=== PATIENT | female | born 1945 | race Two or more races ===

== ENCOUNTER 2018-06-02 21:56 | Observation (INO) | payer MEDICARE, OTHER ==
--- NOTE | 2018-06-02 22:21 | PDOC ---
History of Present Illness - General Stated Complaint: DIZZY Time Seen by Provider: 06/02/18 22:08 History Source: Patient Exam Limitations: No Limitations - History of Present Illness Initial Comments: 06/03/18 04:18 Pt is a 72 y/o F with PMH of CVA, who presents to the ED for new onset dizziness and headache since this morning. Pt states that she feels like the room is spinning around her, and she is nauseous. The son at bedside states when her dizziness started, the patient was confused and was not understanding simple commands or answering questions. The episode was brief; however, the son was concerned because this was how her previous stroke started. Pt is currently AAOX3 with stable vitals. Pt is unsteady on her feet. Son also states that she has some residual R sided weakness from her previous stroke. Denies fevers, chills, SOB, chest pain, ear ache, v/d, weakness, numbness and tingling in her extremities. Past History - Travel Traveled outside of the country in the last 30 days: No Close contact w/someone who was outside of country & ill: No - Past Medical History Allergies/Adverse Reactions: Allergies Allergy/AdvReac Type Severity Reaction Status Date / Time No Known Allergies Allergy Verified 06/02/18 22:30 Review of Systems - Review of Systems Able to Perform ROS?: Yes Comments:: 06/03/18 00:05 CONSTITUTIONAL: Absent: fever, chills, diaphoresis, generalized weakness, malaise, loss of appetite HEENT: Absent: rhinorrhea, nasal congestion, throat pain, throat swelling, difficulty swallowing, mouth swelling, ear pain, eye pain, visual Changes CARDIOVASCULAR: Absent: chest pain, loss of consciousness, palpitations, irregular heart rate, peripheral edema RESPIRATORY: Absent: cough, shortness of breath, dyspnea with exertion, orthopnea, wheezing, stridor, hemoptysis GASTROINTESTINAL: Present: nausea Absent: abdominal pain, abdominal distension, vomiting, diarrhea , constipation, melena, hematochezia GENITOURINARY: Absent: dysuria, frequency, urgency, hesitancy, hematuria, flank pain, genital pain MUSCULOSKELETAL: Absent: myalgia, arthralgia, joint swelling SKIN: Absent: rash, itching, pallor HEMATOLOGIC/IMMUNOLOGIC: Absent: easy bleeding, easy bruising, lymphadenopathy, frequent infections ENDOCRINE: Absent: unexplained weight gain, unexplained weight loss, heat intolerance, cold intolerance NEUROLOGIC: Present: dizziness, unsteady gait, headache Absent: focal weakness or paresthesias, seizure, mental status changes, bladder or bowel incontinence PSYCHIATRIC: Absent: anxiety, depression, suicidal or homicidal ideation, hallucinations. Is the patient limited Slovenian proficient: No *Physical Exam - Physical Exam Comments: 06/03/18 00:05 GENERAL: Well developed, well nourished. Awake and alert. No acute distress. HEENT: Normocephalic, atraumatic. PERRLA, EOMI. No conjunctival pallor. Sclera are non- icteric. Moist mucous membranes. Oropharynx is clear. NECK: Supple. Full ROM. No JVD. Carotid pulses 2+ and symmetric, without bruits. No thyromegaly. No lymphadenopathy. CARDIOVASCULAR: Regular rate and rhythm. No murmurs, rubs, or gallops. Distal pulses are 2+ and symmetric. PULMONARY: No evidence of respiratory distress. Lungs clear to auscultation bilaterally. No wheezing, rales or rhonchi. ABDOMINAL: Soft. Non-tender. Non-distended. No rebound or guarding. No organomegaly. Normoactive bowel sounds. MUSCULOSKELETAL Normal range of motion at all joints. No bony deformities or tenderness. No CVA tenderness. EXTREMITIES: No cyanosis. No clubbing. No edema. No calf tenderness. SKIN: Warm and dry. Normal capillary refill. No rashes. No jaundice. NEUROLOGICAL: Alert, awake, appropriate. Cranial nerves 2-12 intact. No deficits to light touch and temperature in face, upper extremities and lower extremities. No motor deficits in the in face, upper extremities and lower extremities. Normoreflexic in the upper and lower extremities. Normal speech. Toes are down- going bilaterally. Gait is normal without ataxia. Pt with difficulty with alternating rapid movements on the right; as well as mild dysmetria on the R. PSYCHIATRIC: Cooperative. Good eye contact. Appropriate mood and affect. ED Treatment Course - LABORATORY CBC & Chemistry Diagram: 06/03/18 00:17 06/03/18 00:17 Medical Decision Making - Medical Decision Making 06/03/18 03:21 Patient is a 72-year-old female past medical history of stroke, who presents to the emergency department today for new onset dizziness. Of note patient had brief altered mental status this morning when talking with her son. Returned to baseline after 2 minutes. -On exam patient with difficulty performing rapid alternating movements of the right hand as well as having some dysmetria. Unclear if this is from the residual stroke or new neurological findings. -Lab work is unremarkable at this time. No leukocytosis, H&H is stable. No gross electrolyte abnormalities. -Meclizine administered in the emergency department with relief of some symptoms. Patient still reports being dizzy. -Head CT is negative for acute pathology. -Given age, dizziness, brief altered mental status, and potentially new neurological findings, we'll place patient in observation for MRI and neurology consult. Case discussed with Reagan Brower PGY-II for [facility], who agrees with obs placement *DC/Admit/Observation/Transfer Diagnosis at time of Disposition: Dizziness - Discharge Dispostion Condition at time of disposition: Fair Decision to Admit order: Yes - Referrals - Patient Instructions - Post Discharge Activity
[2018-06-02 22:30] VITALS: BMI 26.6
[2018-06-02] MEDS ORDERED: SODIUM CHLORIDE 1,000 ML IV STA (22:32)
[2018-06-02] MEDS ORDERED: ONDANSETRON 4 MG/2 ML VIAL IVPUSH ONE (22:45)
[2018-06-02] MEDS ORDERED: MECLIZINE HCL 25 MG TABLET (FP) PO ONE (22:45)
[2018-06-02] MEDS ORDERED: ONDANSETRON 4 MG/2 ML VIAL ONE (23:58)
[2018-06-02] MEDS ORDERED: MECLIZINE HCL 25 MG TABLET (FP) ONE (23:58)
[2018-06-03 00:42] LABS: BASO % 0.3 % (0-2.0); EOS % 0.5 % (0-4.5); HEMATOCRIT 45.2 % (32.4-45.2); HEMOGLOBIN 15.3 GM/dL (10.7-15.3); LYMPH % 10.6 % (8-40); MCH 30.3 pg (25.7-33.7); MCHC 33.8 g/dl (32.0-36.0); MEAN CELL VOLUME 89.4 fl (80-96); MEAN PLT VOLUME 8.8 fl (7.5-11.1); MONO % 5.8 % (3.8-10.2); NEUT % 82.8 % (42.8-82.8); PLATELET COUNT 241 K/MM3 (134-434); RBC 5.06 M/mm3 (3.60-5.2); WHITE BLOOD COUNT 10.6 K/mm3 (4.0-10.0)
[2018-06-03 00:43] LABS: URINE APPEARANCE CLEAR; URINE BILIRUBIN NEGATIVE (<2.0 mg/dL); URINE COLOR LTYELLOW; URINE GLUCOSE (UA) NEGATIVE (NEGATIVE); URINE KETONE NEGATIVE (NEGATIVE); URINE NITRITE NEGATIVE (NEGATIVE); URINE PROTEIN NEGATIVE (NEGATIVE); URINE UROBILINOGEN NEGATIVE mg/dL (0.2-1.0)
[2018-06-03 00:47] LABS: URINE LEUK ESTERASE 3+ (NEGATIVE)
[2018-06-03 00:48] LABS: INR 1.09 (0.83-1.09); PROTHROMBIN TIME (PATIENT) 12.3 SEC (9.7-13.0)
[2018-06-03 00:50] LABS: EPI CELLS MODERATE /HPF (FEW); URINE MUCUS RARE
[2018-06-03 00:56] LABS: ALBUMIN 3.8 g/dl (3.4-5.0); ALK PHOS 124 U/L (45-117); ANION GAP 8 MMOL/L (8-16); BILIRUBIN,TOTAL 0.4 mg/dL (0.2-1.0); BLOOD UREA NITROGEN 11 mg/dL (7-18); CHLORIDE 105 mmol/L (98-107); CO2 27 mmol/L (21-32); GLUCOSE,RANDOM 109 mg/dL (74-106); SGPT/ALT 25 U/L (12-78); SODIUM 140 mmol/L (136-145); TOT PROT 8.4 g/dl (6.4-8.2)
[2018-06-03 00:57] LABS: POTASSIUM 4.4 mmol/L (3.5-5.1); SGOT/AST 22 U/L (15-37)
--- NOTE | 2018-06-03 05:03 | PN ---
Teaching Attending Note Name of Resident: Aura Pate ATTENDING PHYSICIAN STATEMENT I saw and evaluated the patient. I reviewed the resident's note and discussed the case with the resident. I agree with the resident's findings and plan as documented. SUBJECTIVE: Patient is a 72 year old woman with PMH of CVA (2 years ago), hypertension and CABG who presents to the ER for new onset dizziness and headache since this morning. SOn says they had just arrived on a flight from [facility] and after she took he shower started complaining of those symptoms. Patient states that she feels like the room is spinning around her, and she is nauseous. The son at bedside states when her dizziness started, the patient was confused and was not understanding simple commands or answering questions. Patient is currently back to her baseline - son told me that her CVA two years ago was not associated with hemiparesis, though he gave a different history to the ER staff - that she has some residual R sided weakness from her previous stroke. Denies fevers, chills, SOB, or chest pain. She was asymtomatic before they boarded the flight to [place] from and did not have any issues during the flight. Was complaining of thirst upon arrival in the ER. OBJECTIVE: Alert Vital Signs Period Temp Pulse Resp BP Sys/Briseno Pulse Ox Last 24 Hr 97.3 F 82 18 133/87 96 HEENT: No Jaundice, eye redness or discharge, PERRLA, EOMI. Normocephalic, atraumatic. External ears are normal and hearing is grossly intact. No nasal discharge. Neck: Supple, nontender. No palpable adenopathy or thyromegaly. No JVD Chest: Good effort. Clear to auscultation and percussion. Heart: Regular. No S3, rub or murmur Abdomen: Not distended, soft, nontender and no HSM. No rebound or guarding. Normoactive bowel sounds. Ext: Peripheral pulses intact. No leg edema. Limited ROM right shoulder - no tenderness. Skin: Warm and dry. No petechiae, rash or ecchymosis. Neuro: Alert. Oriented x3. CN 2-12 grossly intact. Sensation grossly intact in all four extremities and DTR are symmetric. Slow gait. Abnormal Lab Results 06/03/18 06/03/18 06/03/18 00:17 00:17 00:17 WBC 10.6 H Absolute Neuts (auto) 8.8 H Random Glucose 109 H Alkaline Phosphatase 124 H Total Protein 8.4 H Ur Leukocyte Esterase 3+ H ASSESSMENT AND PLAN: 1.UTI - Head CT scan does not show any acute pathology and there is nothing to suggest PE despite the long airplane flight. UTI may explain her symptoms, exacerbated by heat. Will treat with IV NS and Rocephin 1 gm q 24 hours. If dizziness reoccurs, will get brain MRI. Get fasting lipid profile, monitor on telemetry and treat with aspirin and lipitor 80 mg qd. Consult neurology. 2. DVT prophylaxis - Lovenox 40 mg SQ q 24 hours. 3. Advance directives - Full code
[2018-06-03] MEDS ORDERED: ROSUVASTATIN CA 20 MG TABLET (FP) PO ONE (06:08)
--- NOTE | 2018-06-03 06:39 | HP ---
CHIEF COMPLAINT: Dizziness PCP: None currently; Previously at the [facility] in [facility] HISTORY OF PRESENT ILLNESS: 72 y/o female, primarily mosotho speaking, with a PMhx of CVA (Residual Right sided weakness), HTN, HLD, accompanied by her son (Who provided most of the hx) presents with new onset dizziness. Patient arrived from [facility] Wednesday after a 3 hour flight. On the car ride home from the airport , patient felt some pain in her left abdomen accompanied by nausea but no vomiting and urinated on herself. After arriving home, the son offered her something to eat and the patient was unable to answer. Her son says she was acting strange unable to respond or comprehend to his questions and that her lower lip was deviating to the left. This episode lasted for approx 3 mins after which the patient complained of dizziness, as if the room is spinning around her. It was not accompanied by LOC or jerking movements. Given her hx of stroke, her son was prompted to call EMS and bring the patient to [facility] ED. During the episode, she denies any pain, weakness, or sensational deficits. She denies any new stress in her life, no new trauma, no feelings of anxiety. She did have medication changes approx 1 month ago however her son is unsure of what specifically. Her symptoms have resolved during her ED Stay. 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 Family History: Denies Allergies No Known Allergies Allergy (Verified 06/02/18 22:30) HOME MEDICATIONS: REVIEW OF SYSTEMS CONSTITUTIONAL: Absent: fever, chills, diaphoresis, generalized weakness, malaise, loss of appetite, weight change HEENT: Absent: rhinorrhea, nasal congestion, throat pain, throat swelling, difficulty swallowing, mouth swelling, ear pain, eye pain, visual changes CARDIOVASCULAR: Absent: chest pain, syncope, palpitations, irregular heart rate, lightheadedness , peripheral edema RESPIRATORY: Absent: cough, shortness of breath, dyspnea with exertion, orthopnea, wheezing, stridor, hemoptysis GASTROINTESTINAL: Present: Nausea Absent: abdominal pain, abdominal distension, vomiting, diarrhea, constipation, melena, hematochezia GENITOURINARY: Present: Urinary incontinence Absent: dysuria, frequency, urgency, hesitancy, hematuria, flank pain, genital pain MUSCULOSKELETAL: Absent: myalgia, arthralgia, joint swelling, back pain, neck pain SKIN: Absent: rash, itching, pallor HEMATOLOGIC/IMMUNOLOGIC: Absent: easy bleeding, easy bruising, lymphadenopathy, frequent infections ENDOCRINE: Absent: unexplained weight gain, unexplained weight loss, heat intolerance, cold intolerance NEUROLOGIC: Present: dizziness, Absent: headache, focal weakness or paresthesias, unsteady gait, seizure, mental status changes, bladder or bowel incontinence PSYCHIATRIC: Absent: anxiety, depression, suicidal or homicidal ideation, hallucinations. PHYSICAL EXAMINATION Vital Signs - 24 hr 06/02/18 22:00 Temperature 97.3 F L Pulse Rate 82 Respiratory 18 Rate Blood Pressure 133/87 O2 Sat by Pulse 96 Oximetry (%) GENERAL: Awake, alert, and fully oriented, in no acute distress. HEAD: Normal with no signs of trauma. EYES: PERRL, EOMI THROAT: Oropharynx clear without exudates. Moist mucous membranes. Uvula midline. NECK: No JVD LUNGS: Breath sounds equal, clear to auscultation bilaterally. No wheezes, and no crackles. HEART: Regular rate and rhythm, normal S1 and S2 without murmur ABDOMEN: Soft, nontender, not distended, normoactive bowel sounds, no guarding UPPER EXTREMITIES: 2+ pulses, Limited Right shoulder ROM LOWER EXTREMITIES: 2+ pulses, No calf tenderness. No peripheral edema. NEUROLOGICAL: Cranial nerves II-XII intact. Normal speech. C5-T1 and L4-S1 gross sensation intake. Difficulty with Finger to nose R>L. Patient able to ambulate with short stepping gait. Right sided difficulty with rapid hand alternating movements. Muscle strength 5/5 throughout SKIN: Warm, dry, no rashes or lesions noted Laboratory Results - last 24 hr 06/03/18 06/03/18 06/03/18 00:17 00:17 00:17 WBC 10.6 H RBC 5.06 Hgb 15.3 Hct 45.2 MCV 89.4 MCH 30.3 MCHC 33.8 RDW 14.0 Plt Count 241 MPV 8.8 Absolute Neuts (auto) 8.8 H Neutrophils % 82.8 Lymphocytes % 10.6 Monocytes % 5.8 Eosinophils % 0.5 Basophils % 0.3 Nucleated RBC % 0 PT with INR 12.30 INR 1.09 Sodium Potassium Chloride Carbon Dioxide Anion Gap BUN Creatinine Creat Clearance w eGFR Random Glucose Calcium Total Bilirubin AST ALT Alkaline Phosphatase Creatine Kinase Troponin I Total Protein Albumin Urine Color Ltyellow Urine Appearance Clear Urine pH 6.0 Ur Specific [place] 1.015 Urine Protein Negative Urine Glucose (UA) Negative Urine Ketones Negative Urine Blood Negative Urine Nitrite Negative Urine Bilirubin Negative Urine Urobilinogen Negative Ur Leukocyte Esterase 3+ H Urine WBC (Auto) 17 Urine RBC (Auto) 1 Ur Epithelial Cells Moderate Urine Mucus Rare 06/03/18 06/03/18 00:17 00:17 WBC RBC Hgb Hct MCV MCH MCHC RDW Plt Count MPV Absolute Neuts (auto) Neutrophils % Lymphocytes % Monocytes % Eosinophils % Basophils % Nucleated RBC % PT with INR INR Sodium 140 Potassium 4.4 Chloride 105 Carbon Dioxide 27 Anion Gap 8 BUN 11 Creatinine 1.0 Creat Clearance w eGFR 54.20 Random Glucose 109 H Calcium 9.0 Total Bilirubin 0.4 AST 22 ALT 25 Alkaline Phosphatase 124 H Creatine Kinase 45 Troponin I 0.02 Total Protein 8.4 H Albumin 3.8 Urine Color Urine Appearance Urine pH Ur Specific [place] Urine Protein Urine Glucose (UA) Urine Ketones Urine Blood Urine Nitrite Urine Bilirubin Urine Urobilinogen Ur Leukocyte Esterase Urine WBC (Auto) Urine RBC (Auto) Ur Epithelial Cells Urine Mucus Active Medications Aspirin (Asa -) 81 mg PO DAILY COUNTS INCLUDE 234 BEDS AT THE [facility] Enoxaparin Sodium (Lovenox -) 40 mg SQ DAILY COUNTS INCLUDE 234 BEDS AT THE [facility] Ceftriaxone Sodium 1 gm/ (Dextrose) 100 mls @ 200 mls/hr IVPB DAILY SIRIA; Protocol Sodium Chloride (Normal Saline -) 1,000 mls @ 75 mls/hr IV ASDIR SIRIA ASSESSMENT/PLAN: 72 y/o female with a PMhx of CVA (Residual Right sided weakness), HTN, HLD, who just arrived from [facility] presents with new onset dizziness and difficulty responding to commands will be observed in Tele 1. UTI - UA: 3+ LE, 17 WBC - Stat urine Cultures ordered - Rocephin 1gm daily - NS Bolus give in ED, continue with IV NS @ 75 mls/hr 2. Hx of Stroke - Head CT pending official read - Neurology (Dr. Bradley) Consulted, Can consider MRI pending recommendations - ASA 81 mg, Rosuvastatin 40 mg started - Lipid panel pending this AM - ECHO, Carotid doppler ordered - PT Requested 3. FEN - NS @ 75 mls/hr - Lytes wnl - Regular diet 4. PPx - DVT: Lovenox 40mg SQ Daily Dispo: Obs tele Visit type - Emergency Visit Emergency Visit: Yes Care time: The patient presented to the Emergency Department on the above date and was hospitalized for further evaluation of their emergent condition. - New Patient This patient is new to me today: Yes Date on this admission: 06/03/18 - Critical Care Critical Care patient: No Hospitalist Screening - Colonoscopy Questionnaire Colonoscopy Questionnaire: Colonoscopy Questionnaire - Patient: 50 - 75 years old and never had a screening colonoscopy: Unknown History of colon or rectal polyps, or CA: Unknown History of IBD, Crohn's disease or UC: Unknown History of abdominal radiation therapy as a child: Unknown - Relative: 1 with colon or rectal CA, or polyps at age 60 or younger: Unknown Colon or rectal CA diagnosed at age 45 or younger: Unknown Multiple relatives with colon or rectal CA: Unknown - Outcome: Screening Result: Negative Screen
[2018-06-03] MEDS ORDERED: SODIUM CHLORIDE 1,000 ML IV SCH (06:45)
[2018-06-03 08:30] LABS: EOS % 2.5 % (0-4.5); HEMATOCRIT 42.9 % (32.4-45.2); HEMOGLOBIN 14.4 GM/dL (10.7-15.3); LYMPH % 29.4 % (8-40); MCH 29.9 pg (25.7-33.7); MCHC 33.5 g/dl (32.0-36.0); MEAN CELL VOLUME 89.2 fl (80-96); MEAN PLT VOLUME 8.8 fl (7.5-11.1); MONO % 7.1 % (3.8-10.2); PLATELET COUNT 207 K/MM3 (134-434); RBC 4.81 M/mm3 (3.60-5.2); RDW 13.7 % (11.6-15.6); WHITE BLOOD COUNT 5.6 K/mm3 (4.0-10.0)
[2018-06-03] MEDS ORDERED: MECLIZINE HCL 25 MG TABLET (FP) PO PRN (08:39)
[2018-06-03 08:53] LABS: ALBUMIN 3.4 g/dl (3.4-5.0); ANION GAP 9 MMOL/L (8-16); BILIRUBIN,TOTAL 0.6 mg/dL (0.2-1.0); BLOOD UREA NITROGEN 10 mg/dL (7-18); CHLORIDE 108 mmol/L (98-107); CHOLESTEROL 247 mg/dL (50-200); CO2 27 mmol/L (21-32); GLUCOSE,RANDOM 91 mg/dL (74-106); MAGNESIUM 2.2 mg/dL (1.8-2.4); PHOSPHOROUS 3.6 mg/dL (2.5-4.9); SGPT/ALT 20 U/L (12-78); SODIUM 144 mmol/L (136-145); TOT PROT 7.3 g/dl (6.4-8.2); TRIGLYCERIDES 61 mg/dL (35-160)
[2018-06-03 08:54] LABS: ALK PHOS 110 U/L (45-117); CREATININE 0.8 mg/dL (0.55-1.02); SGOT/AST 14 U/L (15-37)
[2018-06-03 08:55] LABS: HDL CHOLESTEROL 50 mg/dL (40-60)
[2018-06-03] MEDS ORDERED: ASPIRIN 81 MG CHEWABLE TABLETS PO SCH (10:00)
[2018-06-03] MEDS ORDERED: CEFTRIAXONE 1 GM in DEXTROSE 5%-WATER 100 ML IVPB SCH (10:00)
[2018-06-03] MEDS ORDERED: ENOXAPARIN NA (PORCINE) 40 MG/0.4 ML DISP.SYRIN SQ SCH (10:00)
[2018-06-03] MEDS ORDERED: ASPIRIN 81 MG CHEWABLE TABLETS ONE (10:29)
[2018-06-03] MEDS ORDERED: ENOXAPARIN NA (PORCINE) 40 MG/0.4 ML DISP.SYRIN SQ ONE ×2 (10:29→10:30)
[2018-06-03] MEDS ORDERED: CEFTRIAXONE 1 GM/50 ML BAG ONE (10:30)
--- NOTE | 2018-06-03 10:30 | EKG ---
Test Reason : Blood Pressure : / mmHG Vent. Rate : 085 BPM Atrial Rate : 085 BPM P-R Int : 156 ms QRS Dur : 146 ms QT Int : 434 ms P-R-T Axes : 073 -69 087 degrees QTc Int : 516 ms Atrial-sensed ventricular-paced rhythm ABNORMAL ECG NO PREVIOUS ECGS AVAILABLE Confirmed by JENS OJEDA MD ([id number]) on 06/03/2018 10:29:31 AM Referred By: Confirmed By:JENS OJEDA MD
[2018-06-03 12:09] VITALS: PULSE 80
--- NOTE | 2018-06-03 12:46 | CONSULT ---
Admitting History and Physical - Primary Care Physician PCP: [facility] - Admission History of Present Illness: 72 y/o female with a PMhx of CVA (Residual Right sided weakness), HTN, HLD, who just arrived from [facility] presents with new onset dizziness and difficulty responding to commands Selected Entries 06/03/18 06/03/18 08:28 12:07 Temperature 99.1 F 98.9 F Laboratory Tests 06/03/18 06/03/18 00:17 08:00 WBC 10.6 H 5.6 Seen in ER. Pt's son served as newspaper vendor and informant. History Source: Patient, Family Member, Medical Record Limitations to Obtaining History: No Limitations, Language Barrier - Smoking History Smoking history: Unknown if ever smoked Have you smoked in the past 12 months: No - Alcohol/Substance Use Hx Alcohol Use: No History - Admission Reason For Visit: DIZZINESS - Diagnostics X-ray: Report Reviewed CT Scan: Report Reviewed - General Mental Status: Alert and Oriented, Awake and Alert, Able to Follow Commands Attention: Intact Ability to Follow Directions: Excellent Head/Neck Control: WFL - Hearing Hearing: Functional Speech Evaluation - Communication Primary Language: OCCITAN Communication: Yes: Within Normal Limits Oral Expression Ability: Yes: No Impairment - Speech Production Able to Make Needs Known: Yes: WNL Intelligibility: Yes: WNL - Speech Characteristics Voice Loudness: Normal Voice Pitch: Yes: Normal Voice Phonatory-based Quality: Yes: Normal Speech Pattern: Normal Speech Clarity: < 100% Nasal Resonance: Normal Articulation: Yes: Precise Rate of Speech: Intact - Language/Auditory Comprehension Follows: Yes: 2 Stage Simple Commands - Language/Verbal Expression Able to Respond to Simple Queries: Yes: WNL Able to Communicate Wants and Needs: Yes: WNL Functional Communication Status: Yes: WNL - Memory/Perception halfway Memory: Yes: WNL Short Term Memory: Yes: WNL - Swallow Evaluation/Bedside Assessment Current Nutritional Intake: Regular, Thin Liquids Oral Secretions: Yes: WFL Dentition: Yes: Adequate Facial Symmetry at Rest: Symmetrical Facial Symmetry on Retraction: Symmetrical Facial Movement: Controlled Against Resistance Opening: Normal Against Resistance Closing: Normal Pucker Lips: Normal Smile: Normal Lingual Movement: Normal, Symmetric Lingual Speed of Movement: Normal Lingual Movement Strgth Against Opposition: Normal Lingual Movement Characteristics: Normal Soft Palate Description: Normal Color, Normal Symmetry Hard Palate Description: Normal Color, Normal Symmetry Velopharyngeal Movement: Normal Laryngeal Elevation: WFL Laryngeal Movement: Able to Palpate Rate of Intake: WFL Bolus Size: WFL Labial Seal: WFL Chewing: WFL Oral Prep Time: WFL A-P Transit: WFL Pocketing: None Timing of Swallow: WFL Coughing/Throat Clear: No Change in Voice: No Recommendations - Speech Evaluation, Impression/Plan Impression: Albanian speaking. Speech production, language, cognition, swallowing WNL. - Dysphagia Impressions/Plan Swallowing Skills: WF Dysphagia Impressions: No Impairment *Silent aspiration: cannot be R/O at bedside - Recommendations Diet Consistency: Regular Medication Administration: Whole with water Liquids: Thin Liquids
--- NOTE | 2018-06-03 16:09 | ECHO ---
Name: ANITA, CANDE Exam:Adult Echocardiogram Study Date: 06/03/2018 10:11 AM Age: 72 yrs Reason For Study: Stroke Height: 66 in Weight: 165 lb BSA: 1.8 m2 MMode/2D Measurements & Calculations IVSd: 1.1 cm Ao root diam: 2.3 cm LVIDd: 4.1 cm LA dimension: 3.1 cm LVIDs: 2.3 cm LVPWd: 0.99 cm LVPWs: 1.4 cm EDV(Teich): 75.3 ml ESV(Teich): 19.1 ml Doppler Measurements & Calculations MV E max saravanan: 84.9 cm/sec Ao V2 max: 142.9 cm/sec MV A max saravanan: 95.8 cm/sec Ao max P.2 mmHg MV E/A: 0.89 AI P1/2t: 301.2 msec MV dec time: 0.15 sec AI max saravanan: 357.2 cm/sec LV V1 max P.2 mmHg AI max P.0 mmHg LV V1 max: 89.3 cm/sec AI dec slope: 347.3 cm/sec2 MR max saravanan: 507.3 cm/sec TR max saravanan: 253.9 cm/sec MR max P.1 mmHg TR max P.0 mmHg PA V2 max: 97.1 cm/sec Med Peak E' Saravanan: 6.5 cm/sec PA max P.8 mmHg Med E/e': 13.1 Lat Peak E' Saravanan: 6.0 cm/sec PA acc slope: 221.7 cm/sec2 Lat E/e': 14.1 PA acc time: 0.28 sec PA pr(Accel): -47.8 mmHg Procedure A two-dimensional transthoracic echocardiogram with color flow and Doppler was performed. Left Ventricle The left ventricle is grossly normal size. Proximal septal thickening is noted. The left ventricular ejection fraction is normal. There is moderate apical wall hypokinesis. There is apical lateral wall hypokines is. There is apical anterior wall hypokinesis. Right Ventricle The right ventricle is normal in size and function. Atria The left atrium is moderately dilated. There is a catheter/pacemaker lead seen in the right atrium. T he right atrium is mildly dilated. Mitral Valve There is mild mitral valve thickening. There is no mitral valve stenosis. There is moderate to severe mitral regurgitation. Tricuspid Valve There is mild tricuspid valve thickening. There is no tricuspid stenosis. There is moderate to severe tricuspid regurgitation. Right ventricular systolic pressure is elevated at 40-50mmHg. Aortic Valve The aortic valve is normal in structure and function. No hemodynamically significant valvular aortic stenosis. Mild aortic regurgitation. Great Vessels The aortic root is normal size. Pericardium/Pleura There is no pericardial effusion. Interpretation Summary The left ventricular ejection fraction is normal. There is a catheter/pacemaker lead seen in the right atrium. The left ventricle is grossly normal size. Proximal septal thickening is noted. There is moderate apical wall hypokinesis. The left atrium is moderately dilated. The right atrium is mildly dilated. There is moderate to severe mitral regurgitation. There is moderate to severe tricuspid regurgitation. Right ventricular systolic pressure is elevated at 40-50mmHg. Mild aortic regurgitation. There is apical lateral wall hypokinesis. There is apical anterior wall hypokinesis. MD John Schulte 06/03/2018 03:05 PM
--- NOTE | 2018-06-03 18:01 | PN ---
Teaching Attending Note Name of Resident: Lyle Hong ATTENDING PHYSICIAN STATEMENT I saw and evaluated the patient. I reviewed the resident's note and discussed the case with the resident. I agree with the resident's findings and plan as documented with exceptions below. SUBJECTIVE: Patient seen and examined, no dizziness or new concerns, joking with the family at bedside. Son wondering if patient can go home. OBJECTIVE: Vital Signs Period Temp Pulse Resp BP Sys/Briseno Pulse Ox Last 24 Hr 97.3 F-99.1 F 76-82 18-18 133-146/83-95 96-100 Intake & Output 05/31/18 06/01/18 06/02/18 06/03/18 23:59 23:59 23:59 23:59 Weight 165 lb General: sitting in bed in no acute distress Chest: CTAB, no rales or wheezing Abdomen:soft, ND Extremities: no edema Neuro: Alert. Oriented x3. CN 2-12 grossly intact. Sensation grossly intact in all four extremities and DTR are symmetric. Slow gait. Active Medications Aspirin (Asa -) 81 mg PO DAILY SIRIA Last Admin: 06/03/18 10:31 Dose: 81 mg Enoxaparin Sodium (Lovenox -) 40 mg SQ DAILY SIRIA Last Admin: 06/03/18 10:31 Dose: 40 mg Ceftriaxone Sodium 1 gm/ (Dextrose) 100 mls @ 200 mls/hr IVPB DAILY SIRIA; Protocol Last Admin: 06/03/18 10:31 Dose: 200 mls/hr Sodium Chloride (Normal Saline -) 1,000 mls @ 75 mls/hr IV ASDIR SIRIA Last Admin: 06/03/18 06:50 Dose: 75 mls/hr Meclizine HCl (Antivert -) 25 mg PO Q6H PRN PRN Reason: VERTIGO Laboratory Results - last 24 hr 06/03/18 06/03/18 06/03/18 00:17 00:17 00:17 WBC 10.6 H RBC 5.06 Hgb 15.3 Hct 45.2 MCV 89.4 MCH 30.3 MCHC 33.8 RDW 14.0 Plt Count 241 MPV 8.8 Absolute Neuts (auto) 8.8 H Neutrophils % 82.8 Lymphocytes % 10.6 Monocytes % 5.8 Eosinophils % 0.5 Basophils % 0.3 Nucleated RBC % 0 PT with INR 12.30 INR 1.09 Sodium Potassium Chloride Carbon Dioxide Anion Gap BUN Creatinine Creat Clearance w eGFR Random Glucose Calcium Phosphorus Magnesium Total Bilirubin AST ALT Alkaline Phosphatase Creatine Kinase Troponin I Total Protein Albumin Triglycerides Cholesterol Total LDL Cholesterol HDL Cholesterol Urine Color Ltyellow Urine Appearance Clear Urine pH 6.0 Ur Specific [place] 1.015 Urine Protein Negative Urine Glucose (UA) Negative Urine Ketones Negative Urine Blood Negative Urine Nitrite Negative Urine Bilirubin Negative Urine Urobilinogen Negative Ur Leukocyte Esterase 3+ H Urine WBC (Auto) 17 Urine RBC (Auto) 1 Ur Epithelial Cells Moderate Urine Mucus Rare 06/03/18 06/03/18 06/03/18 00:17 00:17 08:00 WBC 5.6 RBC 4.81 Hgb 14.4 Hct 42.9 MCV 89.2 MCH 29.9 MCHC 33.5 RDW 13.7 Plt Count 207 MPV 8.8 Absolute Neuts (auto) 3.4 Neutrophils % 60.0 D Lymphocytes % 29.4 D Monocytes % 7.1 Eosinophils % 2.5 D Basophils % 1.0 D Nucleated RBC % 0 PT with INR INR Sodium 140 Potassium 4.4 Chloride 105 Carbon Dioxide 27 Anion Gap 8 BUN 11 Creatinine 1.0 Creat Clearance w eGFR 54.20 Random Glucose 109 H Calcium 9.0 Phosphorus Magnesium Total Bilirubin 0.4 AST 22 ALT 25 Alkaline Phosphatase 124 H Creatine Kinase 45 Troponin I 0.02 Total Protein 8.4 H Albumin 3.8 Triglycerides Cholesterol Total LDL Cholesterol HDL Cholesterol Urine Color Urine Appearance Urine pH Ur Specific [place] Urine Protein Urine Glucose (UA) Urine Ketones Urine Blood Urine Nitrite Urine Bilirubin Urine Urobilinogen Ur Leukocyte Esterase Urine WBC (Auto) Urine RBC (Auto) Ur Epithelial Cells Urine Mucus 06/03/18 06/03/18 08:00 08:00 WBC RBC Hgb Hct MCV MCH MCHC RDW Plt Count MPV Absolute Neuts (auto) Neutrophils % Lymphocytes % Monocytes % Eosinophils % Basophils % Nucleated RBC % PT with INR INR Sodium 144 Potassium 4.0 Chloride 108 H Carbon Dioxide 27 Anion Gap 9 BUN 10 Creatinine 0.8 Creat Clearance w eGFR > 60 Random Glucose 91 Calcium 9.0 Phosphorus 3.6 Magnesium 2.2 Total Bilirubin 0.6 AST 14 L ALT 20 Alkaline Phosphatase 110 D Creatine Kinase 44 Troponin I < 0.02 Total Protein 7.3 Albumin 3.4 Triglycerides 61 Cholesterol 247 H Total LDL Cholesterol 196 H HDL Cholesterol 50 Urine Color Urine Appearance Urine pH Ur Specific [place] Urine Protein Urine Glucose (UA) Urine Ketones Urine Blood Urine Nitrite Urine Bilirubin Urine Urobilinogen Ur Leukocyte Esterase Urine WBC (Auto) Urine RBC (Auto) Ur Epithelial Cells Urine Mucus CT brain x 2 neg for acute concerns 2D echo and carotid US noted ASSESSMENT AND PLAN: 72 yof just came from yesterday with ?CAD, s/p PPM, HTN, CVA with residual right sided weakness, admitted with transient dizziness, per son, was in the setting of 'heat' that resolved after turning on the AC. -Dizziness, ?related to heat vs mild hypovolumia from recent travel -s/p PPM, ?CAD -HTN -CVA Plan: Asymptomatic CT brain x 2 neg for acute concerns. 2D echo noted. patient has PPM, just came from . Family interested in setting up outpatient followup. Information provided. Home meds reviewed, Advised to continue the same till established care. Will need outpatient cardiology referral. No urinary symptoms, fevers, WBC or concerns on exam currently. No indication for tx D/c home today with outpatient follow up. Plan discussed with patient and family at bedside in detail, all questions answered.
--- NOTE | 2018-06-03 18:04 | CON.NEURO ---
Consult - History of Present Illness History of Present Illness: 72 y/o female, primarily uzbek speaking, with a PMhx of CVA (Residual Right sided weakness), HTN, HLD, accompanied by her son (Who provided most of the hx) presents with new onset dizziness. Patient arrived from [facility] Wednesday after a 3 hour flight. On the car ride home from the airport , patient felt some pain in her left abdomen accompanied by nausea but no vomiting and urinated on herself. she currnelty denies ALLEN or dizziness. nonfocal exam and CT (-). - Alcohol/Substance Use Hx Alcohol Use: No - Smoking History Smoking history: Unknown if ever smoked Have you smoked in the past 12 months: No Home Medications - Allergies Allergies/Adverse Reactions: Allergies Allergy/AdvReac Type Severity Reaction Status Date / Time No Known Allergies Allergy Verified 06/02/18 22:30 - Home Medications Home Medications: Ambulatory Orders Clopidogrel Bisulfate [Plavix] 75 mg PO DAILY 06/03/18 Lecordius 10 mg PO DAILY 06/03/18 Rosuvastatin [Crestor -] 40 mg PO HS 06/03/18 Sincolex 40 mg PO DAILY 06/03/18 Physical Exam-Neuro Vital Signs: Vital Signs Temperature 97.9 F 06/03/18 15:10 Pulse Rate 80 06/03/18 15:10 Respiratory Rate 18 06/03/18 15:10 Blood Pressure 133/85 06/03/18 15:10 O2 Sat by Pulse Oximetry (%) 99 06/03/18 15:10 Constitutional: Yes: Well Nourished, No Distress (EOmi, no nystagmus, no facial , mild right hemiparesis, no ataxia ), Diaphoresis Labs: CBC, BMP 06/03/18 08:00 06/03/18 08:00 INR, PTT INR 1.09 (0.83-1.09) 06/03/18 00:17 Problem List - Problems (1) Peripheral vertigo Code(s): H81.399 - OTHER PERIPHERAL VERTIGO, UNSPECIFIED EAR (2) Peripheral vertigo Code(s): H81.399 - OTHER PERIPHERAL VERTIGO, UNSPECIFIED EAR Assessment/Plan 72 y/o female, primarily uzbek speaking, with a PMhx of CVA (Residual Right sided weakness), HTN, HLD, accompanied by her son (Who provided most of the hx) presents with new onset dizziness. Patient arrived from [facility] Wednesday after a 3 hour flight. On the car ride home from the airport , patient felt some pain in her left abdomen accompanied by nausea but no vomiting and urinated on herself. she currently denies ALLEN or dizziness. nonfocal exam and CT (-). AP : peripiheral vertigo -resolved can Dc and FU as outpt DR GRAYSON [phone]
[2018-06-03 18:10] VITALS: BP 149/102; TEMP 98.7
--- NOTE | 2018-06-03 18:27 | DS ---
Physical Exam: SUBJECTIVE: Patient seen and examined this AM. At that time, all symptoms had resolved and pt was at baseline as per the pt and as per her multiple family members present. She has some subjective baseline weakness from her past CVA but denies any new or worsening weakness. Pt is ambulating well to the bathroom on her own with no complaints and says she is ready to go home. OBJECTIVE: Vital Signs Period Temp Pulse Resp BP Sys/Briseno Pulse Ox Last 24 Hr 97.3 F-99.1 F 76-82 16-18 133-149/82-102 96-100 PHYSICAL EXAM GENERAL: A&O, no acute distress HEAD: Normocephalic, atraumatic. EYES: PERRL, no scleral icterus EARS, NOSE, THROAT: oropharynx clear without exudates. Moist mucous membranes. NECK: supple without lymphadenopathy LUNGS: CTA b/l, no crackles or wheezes HEART: Regular rate and rhythm ABDOMEN: Soft, nontender to palpation, normoactive bowel sounds MUSCULOSKELETAL: No bony deformities or tenderness. EXTREMITIES: 2+ pulses, warm, well-perfused. No peripheral edema. NEUROLOGICAL: Cranial nerves II-XII grossly intact. Normal speech. Sensation completely in tact and pt able to ambulate well without assist. PSYCHIATRIC: Cooperative. Good eye contact. Appropriate mood and affect. SKIN: Warm, dry, no rashes or lesions noted LABS Laboratory Results - last 24 hr 06/03/18 06/03/18 06/03/18 00:17 00:17 00:17 WBC 10.6 H RBC 5.06 Hgb 15.3 Hct 45.2 MCV 89.4 MCH 30.3 MCHC 33.8 RDW 14.0 Plt Count 241 MPV 8.8 Absolute Neuts (auto) 8.8 H Neutrophils % 82.8 Lymphocytes % 10.6 Monocytes % 5.8 Eosinophils % 0.5 Basophils % 0.3 Nucleated RBC % 0 PT with INR 12.30 INR 1.09 Sodium Potassium Chloride Carbon Dioxide Anion Gap BUN Creatinine Creat Clearance w eGFR Random Glucose Calcium Phosphorus Magnesium Total Bilirubin AST ALT Alkaline Phosphatase Creatine Kinase Troponin I Total Protein Albumin Triglycerides Cholesterol Total LDL Cholesterol HDL Cholesterol Urine Color Ltyellow Urine Appearance Clear Urine pH 6.0 Ur Specific [place] 1.015 Urine Protein Negative Urine Glucose (UA) Negative Urine Ketones Negative Urine Blood Negative Urine Nitrite Negative Urine Bilirubin Negative Urine Urobilinogen Negative Ur Leukocyte Esterase 3+ H Urine WBC (Auto) 17 Urine RBC (Auto) 1 Ur Epithelial Cells Moderate Urine Mucus Rare 06/03/18 06/03/18 06/03/18 00:17 00:17 08:00 WBC 5.6 RBC 4.81 Hgb 14.4 Hct 42.9 MCV 89.2 MCH 29.9 MCHC 33.5 RDW 13.7 Plt Count 207 MPV 8.8 Absolute Neuts (auto) 3.4 Neutrophils % 60.0 D Lymphocytes % 29.4 D Monocytes % 7.1 Eosinophils % 2.5 D Basophils % 1.0 D Nucleated RBC % 0 PT with INR INR Sodium 140 Potassium 4.4 Chloride 105 Carbon Dioxide 27 Anion Gap 8 BUN 11 Creatinine 1.0 Creat Clearance w eGFR 54.20 Random Glucose 109 H Calcium 9.0 Phosphorus Magnesium Total Bilirubin 0.4 AST 22 ALT 25 Alkaline Phosphatase 124 H Creatine Kinase 45 Troponin I 0.02 Total Protein 8.4 H Albumin 3.8 Triglycerides Cholesterol Total LDL Cholesterol HDL Cholesterol Urine Color Urine Appearance Urine pH Ur Specific [place] Urine Protein Urine Glucose (UA) Urine Ketones Urine Blood Urine Nitrite Urine Bilirubin Urine Urobilinogen Ur Leukocyte Esterase Urine WBC (Auto) Urine RBC (Auto) Ur Epithelial Cells Urine Mucus 06/03/18 06/03/18 08:00 08:00 WBC RBC Hgb Hct MCV MCH MCHC RDW Plt Count MPV Absolute Neuts (auto) Neutrophils % Lymphocytes % Monocytes % Eosinophils % Basophils % Nucleated RBC % PT with INR INR Sodium 144 Potassium 4.0 Chloride 108 H Carbon Dioxide 27 Anion Gap 9 BUN 10 Creatinine 0.8 Creat Clearance w eGFR > 60 Random Glucose 91 Calcium 9.0 Phosphorus 3.6 Magnesium 2.2 Total Bilirubin 0.6 AST 14 L ALT 20 Alkaline Phosphatase 110 D Creatine Kinase 44 Troponin I < 0.02 Total Protein 7.3 Albumin 3.4 Triglycerides 61 Cholesterol 247 H Total LDL Cholesterol 196 H HDL Cholesterol 50 Urine Color Urine Appearance Urine pH Ur Specific [place] Urine Protein Urine Glucose (UA) Urine Ketones Urine Blood Urine Nitrite Urine Bilirubin Urine Urobilinogen Ur Leukocyte Esterase Urine WBC (Auto) Urine RBC (Auto) Ur Epithelial Cells Urine Mucus IMAGING: Head CT: 06/02: Moderate atrophy with chronic ischemic changes noted. No acute bleed or signs of acute infarct 06/03: No gross acute intracranial pathology Carotid Doppler: No evidence of hemodynamically significant stenosis CXR: No acute pathology, multi lead pacemaker noted. Echo: Left and right atrial Dilatation, moderate to severe mitral regurgitation , moderate to severe tricuspid regurgitation, apical lateral wall hypokinesis, apical anterior wall hypokinesis. HOSPITAL COURSE: Date of Admission:06/03/18 Date of Discharge: 06/03/18 The patient was admitted for observation following an episode of lethargy at home noted by her son. He states she was different from her baseline and since she has a history of CVA in the past he called EMS. Per the son and the patient , her symptoms had improved greatly by arrival to the ED. With her past history , the decision was made to watch her overnight and r/o acute CVA. Head CT was negative for acute CVA as mentioned above. Further imaging performed as above. The patients symptoms had completely resolved overnight, and she and her son expressed that she was ready to return home. The pt was referred to a primary care physician and recommended to follow up within 1 week as well as follow up with a building repair maintenance supervisor in 1-2 weeks. Minutes to complete discharge: 45 Discharge Summary Reason For Visit: DIZZINESS Current Active Problems Dizziness (Acute) Condition: Good - Instructions Diet, Activity, Other Instructions: You were admitted to to be observed following an episode of lethargy or dizziness noted by your son. He states that you were probably overheated and that your symptoms resolved by the time you arrived to the hospital. With your past history of a stroke with residual weakness, it was determined best to watch you overnight and today. A CT scan of your head was done last night and again today. Neither scan showed any signs of bleeding in your brain or acute stroke. You had an ultrasound of your heart which showed some enlargement of two of your heart chambers as well as some mitral and tricuspid regurgitation (leaky valves). It is important that you be seen by a primary care physician within the next week. As you do not have a primary care physician yet, we have included a recommendation in your discharge packet. Their information is also included below. [address] [facility] [address] [place] [address] You should also see a building repair maintenance supervisor in 1-2 weeks. Please continue your medications as before and follow up with Clinic. At this time all your symptoms have resolved and you are medically safe to go home. If you have any worsening lethargy or new weakness please call [phone] or return to the ED Referrals: Virgil Garvin MD [Staff Physician] - Disposition: HOME - Home Medications Comprehensive Discharge Medication List: Ambulatory Orders Clopidogrel Bisulfate [Plavix] 75 mg PO DAILY 06/03/18 Lecordius 10 mg PO DAILY 06/03/18 Rosuvastatin [Crestor -] 40 mg PO HS 06/03/18 Sincolex 40 mg PO DAILY 06/03/18 This patient is new to me today: Yes Date on this admission: 06/04/18 Emergency Visit: Yes ED Registration Date: 06/03/18 Care time: The patient presented to the Emergency Department on the above date and was hospitalized for further evaluation of their emergent condition. Critical Care patient: No - Discharge Referral Referred to [facility] Med P.C.: No
== END 2018-06-03 18:05 | disposition home or self-care (01) ==
LOC: JER 21:56 → JERBED 06-03 04:26
PROVIDERS: ADMIT Internal Medicine; ATTEND Hospitalist
PROC: 3E03329 Introduction of Other Anti-infective into Peripheral Vein, Percutaneous Approach (ICD-10-PCS; principal; 2018-06-03)
PROC: 3E0337Z Introduction of Electrolytic and Water Balance Substance into Peripheral Vein, Percutaneous Approach (ICD-10-PCS; 2018-06-03)
PROC: 3E033GC Introduction of Other Therapeutic Substance into Peripheral Vein, Percutaneous Approach (ICD-10-PCS; 2018-06-03)
PROC: 3E013GC Introduction of Other Therapeutic Substance into Subcutaneous Tissue, Percutaneous Approach (ICD-10-PCS; 2018-06-03)
DX: N39.0 Urinary tract infection, site not specified (principal); H81.399 Other peripheral vertigo, unspecified ear; I10 Essential (primary) hypertension; Z86.73 Personal history of transient ischemic attack (TIA), and cerebral infarction without residual deficits; Z95.1 Presence of aortocoronary bypass graft
CPT/HCPCS: 36415; 70450-TC; 71045-TC-FY; 80053; 80061; 81003; 81015; 82550; 83721; 83735; 84100; 84484; 85025; 85610; 87086; 93005; 93010; 93306-TC; 93880-TC; 99285-25; G0378; J7030